=== PATIENT | female | born 1990 | race Caucasian/White ===

== ENCOUNTER 2018-10-01 13:05 | Inpatient (IN) | payer OTHER ==
[2018-10-01] MEDS: LACTATED RINGER'S 1000 ML IV (17:33)
[2018-10-01 17:45] LABS: HEMATOCRIT 41.9 % (36.0-47.0); MEAN CORPUSCULAR HEMOGLOBIN 30.6 pg (27.0-33.0); MEAN CORPUSCULAR HGB CONC 33.4 g/dl (32.0-36.5); MEAN CORPUSCULAR VOLUME 91.7 fl (80.0-96.0); PLATELET COUNT, AUTOMATED 229 10^3/uL (150-450); RED BLOOD COUNT 4.57 10^6/uL (4.00-5.40); RED CELL DISTRIBUTION WIDTH 13.3 % (11.5-14.5); WHITE BLOOD COUNT 15.2 10^3/uL (4.0-10.0)
[2018-10-01] MEDS ORDERED: FENTANYL 2MCG/ML ROPIVACAINE 0.2% IN 0.9% NACL 200ML IVBAG As Ordered (18:24)
[2018-10-01] MEDS: LR 1,000 ML IV ×2 (18:34→19:37)
[2018-10-01] MEDS: FENTANYL/ROPIVACAINE/NACL BAG 200 ML EPIDURAL (19:00)
[2018-10-01] MEDS ORDERED: ePHEDrine SULFATE 25 MG/5 ML(5MG/ML) SYRINGE IV (19:30)
[2018-10-01] MEDS ORDERED: diphenhydrAMINE INJ 50MG/ML VIAL (J1200) IV (19:30)
[2018-10-01] MEDS ORDERED: REFRIGERATOR IV KEYS XX (19:30)
[2018-10-01] MEDS ORDERED: EPIDURAL/PCA KEYS XX (19:30)
[2018-10-01] MEDS ORDERED: LACTATED RINGER'S 1000 ML IV (19:30)
[2018-10-01] MEDS ORDERED: NALOXONE INJ 0.4 MG/1 ML VIAL (J2310) IV (19:30)
[2018-10-01] MEDS ORDERED: ONDANSETRON 4MG/2ML VIAL (J2405) IV (19:30)
[2018-10-01] MEDS ORDERED: EPIDURAL COMMENT XX (19:30)
[2018-10-01] MEDS ORDERED: LR 1,000 ML IV (19:40)
[2018-10-01] MEDS ORDERED: OXYTOCIN 30 UNITS IN 0.9% NaCl 500ML IV BAG (J2590) As Ordered (19:41)
[2018-10-01] MEDS: OXYTOCIN DRIP 30 UNITS in APPROPRIATE DILUENT 1 EA IV (19:59)
[2018-10-02] MEDS ORDERED: BICITRA 30ML SOLN UDC As Ordered (01:41)
[2018-10-02] MEDS ORDERED: ceFAZolin 2 GM/D5W 50 ML IV BAG (J0690 PER 500MG) As Ordered (01:41)
[2018-10-02] MEDS ORDERED: EPINEPHrine INJ 1 MG/ML 1ML AMP As Ordered (01:51)
[2018-10-02] MEDS ORDERED: LIDOCAINE PRES-FREE 2% 10ML AMP As Ordered ×2 (01:51)
[2018-10-02] MEDS ORDERED: AZITHROMYCIN INJ 500MG VIAL (J0456) As Ordered (01:57)
[2018-10-02] MEDS ORDERED: MORPHINE PRES-FREE INJ 10 MG/10 ML VIAL (J2274) As Ordered (01:57)
[2018-10-02] MEDS ORDERED: OXYTOCIN INJ 10 UNITS/ML VIAL (J2590) As Ordered (01:57)
[2018-10-02] MEDS ORDERED: ePHEDrine SULFATE 25 MG/5 ML(5MG/ML) SYRINGE As Ordered (02:00)
[2018-10-02] MEDS: BICITRA 30ML SOLN UDC PO (02:00)
[2018-10-02] MEDS ORDERED: dexameTHASONE 4 MG/ML 1ML VIAL (J1100) As Ordered (02:00)
[2018-10-02] MEDS ORDERED: ONDANSETRON 4MG/2ML VIAL (J2405) As Ordered (02:00)
[2018-10-02] MEDS ORDERED: KETOROLAC 60 MG/2 ML VIAL (J1885) As Ordered (02:00)
[2018-10-02] MEDS ORDERED: PHENYLephrine HCL 500 MCG/5 ML (100MCG/ML) SYRINGE (J2370) As Ordered (02:00)
[2018-10-02] MEDS: AZITHROMYCIN INJ 500 MG, VIAL MATE ADAPTER 1 EACH in D5W 250 ML IV (02:02)
[2018-10-02 02:41] LABS: CORD GAS ABE V -2.8; CORD GAS HCO3 V 23.5 MEQ/L; CORD GAS O2 SAT V 48.6 %; CORD GAS PCO2 V 46.2 mmHg; CORD GAS PH V 7.325 UNITS; CORD GAS PO2 V 21.8 mmHg; CORD GAS SBC V 20.9 MEQ/L
[2018-10-02 02:44] LABS: CORD GAS ABE A -4.8; CORD GAS HCO3 A 23.3 MEQ/L; CORD GAS O2 SAT A 43.4 %; CORD GAS PCO2 A 55.2 mmHg; CORD GAS PH A 7.244 UNITS; CORD GAS PO2 A 21.3 mmHg; CORD GAS SBC A 19.2 MEQ/L
[2018-10-02] MEDS ORDERED: fentaNYL 100 MCG/2 ML INJECTION (J3010) IV (02:45)
[2018-10-02] MEDS ORDERED: ONDANSETRON 4MG/2ML VIAL (J2405) IV (02:45)
[2018-10-02] MEDS ORDERED: NALBUPHINE HCL 10 MG/ML AMP (J2300) IV (02:45)
[2018-10-02] MEDS ORDERED: MEPERIDINE INJ 25 MG/ML VIAL (J2175) IV (02:45)
[2018-10-02] MEDS ORDERED: MEASLES,MUMPS,RUBELLA VACCINE INJ (MMR-II) (90707) SC (03:15)
[2018-10-02] MEDS ORDERED: RHOGAM 300 MCG (1500 IU) INJ (J2790) IM (03:15)
[2018-10-02] MEDS ORDERED: METOCLOPRAMIDE INJ 10MG/2ML VIAL (J2765) IV (03:15)
[2018-10-02] MEDS ORDERED: PERCOCET 5MG/325MG TAB PO (03:15)
[2018-10-02] MEDS ORDERED: OXYTOCIN 30 UNITS IN 0.9% NaCl 500ML IV BAG (J2590) As Ordered (04:05)
[2018-10-02] MEDS: OXYTOCIN DRIP 30 UNITS in APPROPRIATE DILUENT 1 EA IV (04:07)
[2018-10-02] MEDS: PRENATAL VITAMINS CHEWABLE TABLET PO ×2 (08:43→09:00)
[2018-10-02] MEDS: DOCUSATE SODIUM 100 MG CAP PO ×2 (08:43→20:49)
[2018-10-02] MEDS: KETOROLAC 30 MG/ML VIAL (J1885) IV ×3 (08:43→20:50)
[2018-10-03] MEDS: IBUPROFEN 800 MG TAB PO ×3 (05:14→21:04)
[2018-10-03 07:05] LABS: HEMATOCRIT 35.1 % (36.0-47.0); MEAN CORPUSCULAR HEMOGLOBIN 30.6 pg (27.0-33.0); MEAN CORPUSCULAR HGB CONC 33.6 g/dl (32.0-36.5); MEAN CORPUSCULAR VOLUME 91.2 fl (80.0-96.0); PLATELET COUNT, AUTOMATED 186 10^3/uL (150-450); RED BLOOD COUNT 3.85 10^6/uL (4.00-5.40); RED CELL DISTRIBUTION WIDTH 13.6 % (11.5-14.5); WHITE BLOOD COUNT 18.9 10^3/uL (4.0-10.0)
[2018-10-03 07:22] LABS: HEMOGLOBIN 11.8 g/dl (12.0-15.5)
[2018-10-03] MEDS: PERCOCET 5MG/325MG TAB PO (08:50)
[2018-10-03] MEDS: PRENATAL VITAMINS CHEWABLE TABLET PO (09:00)
[2018-10-03] MEDS: DOCUSATE SODIUM 100 MG CAP PO ×2 (09:00→21:04)
[2018-10-04] MEDS: IBUPROFEN 800 MG TAB PO (06:02)
[2018-10-04] MEDS: DOCUSATE SODIUM 100 MG CAP PO (08:42)
[2018-10-04] MEDS: PRENATAL VITAMINS CHEWABLE TABLET PO (08:42)
== END 2018-10-04 13:20 | disposition home or self-care (01) | DRG 773 ==
LOC: M LDO 13:05 → M OBS 10-02 04:57 → M LDI 15:06
PROVIDERS: Obstetrics & Gynecology
PROC: 10D00Z1 Extraction of Products of Conception, Low, Open Approach (ICD-10-PCS; principal; 2018-10-02 02:04)
PROC: 10907ZC Drainage of Amniotic Fluid, Therapeutic from Products of Conception, Via Natural or Artificial Opening (ICD-10-PCS; 2018-10-02 02:04)
DX: O32.4XX0 Maternal care for high head at term, not applicable or unspecified (principal); Z37.0 Single live birth; Z3A.39 39 weeks gestation of pregnancy

== ENCOUNTER 2018-10-11 15:31 | Emergency (ER) | payer OTHER | END 2018-10-11 17:48 | disposition home or self-care (01) | LOC: M ED 15:31 | DX: L50.1 Idiopathic urticaria (principal) | CPT/HCPCS: 99283 ==